=== PATIENT | female | born 1965 | race Native Hawaiian/Other Pacific Islander ===

== ENCOUNTER 2020-09-21 15:07 | Outpatient (CLI) | payer OTHER | END 2020-09-21 19:28 | disposition home or self-care (01) | LOC: RAD 15:07 | PROVIDERS: ATTEND Orthopaedic Surgery | DX: M25.511 Pain in right shoulder (principal) ==

== ENCOUNTER 2021-02-15 10:50 | Outpatient (CLI) | payer OTHER | END 2021-02-15 19:31 | disposition home or self-care (01) | LOC: MRI 10:50 | PROVIDERS: ATTEND Orthopaedic Surgery | DX: M16.11 Unilateral primary osteoarthritis, right hip (principal) ==